=== PATIENT | female | born 1995 | race Caucasian/White ===

== ENCOUNTER 2017-03-12 12:17 | Emergency (ER) | payer MEDICAID ==
[~2017-03-12] VITALS: Ht 154.9 cm; Wt 82.0 kg
[2017-03-12 12:39] VITALS: BP 106/69
[2017-03-12] MEDS ORDERED: DEXAMETHASONE 10 MG/ML VIAL IV ONE (16:00)
== END 2017-03-12 17:16 | disposition home or self-care (01) ==
LOC: ER 13:30
DX: T63.481A Toxic effect of venom of other arthropod, accidental (unintentional), initial encounter (principal); S60.562A Insect bite (nonvenomous) of left hand, initial encounter; S60.561A Insect bite (nonvenomous) of right hand, initial encounter; Y92.89 Other specified places as the place of occurrence of the external cause
CPT/HCPCS: 96374; 99284; J1100

== ENCOUNTER 2018-06-03 21:06 | Emergency (ER) | payer SELFPAY ==
[~2018-06-03] VITALS: Ht 154.9 cm; Wt 88.0 kg
[2018-06-04] MEDS ORDERED: ONDANSETRON 4MG ODT PO ONE (03:30)
[2018-06-04 05:38] VITALS: BP 115/69
== END 2018-06-04 05:57 | disposition home or self-care (01) ==
LOC: ER 21:06
DX: J06.9 Acute upper respiratory infection, unspecified (principal)
CPT/HCPCS: 71045; 81025; 87070; 87430; 99284; Q0162

== ENCOUNTER 2018-06-10 11:35 | Emergency (ER) | payer MEDICAID ==
[~2018-06-10] VITALS: Ht 154.9 cm; Wt 90.0 kg
[2018-06-10 12:01] VITALS: BP 126/76
== END 2018-06-10 15:25 | disposition home or self-care (01) ==
LOC: ER 13:02
DX: J03.91 Acute recurrent tonsillitis, unspecified (principal); R01.1 Cardiac murmur, unspecified; F12.10 Cannabis abuse, uncomplicated; Z88.0 Allergy status to penicillin
CPT/HCPCS: 87070; 87430; 99283

== ENCOUNTER 2022-12-10 18:30 | Emergency (ER) | payer MEDICAID, OTHER ==
[~2022-12-10] VITALS: Ht 165.1 cm; Wt 91.0 kg
[2022-12-10 18:33] VITALS: TEMP 98.5; O2SAT 98
[2022-12-10] MEDS ORDERED: NAPR375T5 MT (22:42)
[2022-12-10] MEDS ORDERED: CLIN-116 MT (22:42)
[2022-12-10] MEDS ORDERED: KETOROLAC 30MG/ML VIAL IM ONE (23:00)
[2022-12-10 23:33] VITALS: BP 116/64; PULSE 72; RESP 18
== END 2022-12-10 23:38 | disposition home or self-care (01) ==
LOC: ER 18:30
DX: S91.209A Unspecified open wound of unspecified toe(s) with damage to nail, initial encounter (principal); F12.90 Cannabis use, unspecified, uncomplicated; Z88.0 Allergy status to penicillin; Z88.8 Allergy status to other drugs, medicaments and biological substances; X58.XXXA Exposure to other specified factors, initial encounter; Y93.89 Activity, other specified; Y92.89 Other specified places as the place of occurrence of the external cause; Y99.8 Other external cause status
CPT/HCPCS: 81025; 96372; 99283; J1885; Z7610